=== PATIENT | male | born 1955 | race Caucasian/White ===

== ENCOUNTER 2017-06-13 12:00 | Emergency (ER) | payer MEDICAID ==
[2014-03-19 11:42] VITALS: BMI 37.7
--- NOTE | ~2017-06-13 | OP ---
PATIENT NAME: FCO GARNER MEDICAL RECORD: [id number] :59 LOCATION:[facility] ADMISSION DATE: SURGEON: FCO FARNSWORTH MD DATE OF OPERATION: 06/13/2017 PROCEDURES: 1. PTCA and stent, LAD. 2. Intravascular ultrasound of LAD. 3. Left heart catheterization. 4. Selective coronary angiography. 5. Left ventriculogram. INDICATIONS: Angina and coronary disease. PROCEDURE IN DETAIL: After informed consent was obtained and after detailed explanation of risks and benefits as well as alternative therapies, the patient was elected to proceed with angiogram and angioplasty. The right femoral area was prepped and draped in normal sterile fashion. The right femoral artery was cannulated via modified Seldinger technique with placement of 6-Armenian sheath. All catheters were exchanged through the sheath. FINDINGS: Left ventriculogram was performed in standard 30-degree OLIVEIRA view, reveals good cardiac wall motion throughout all segments. Overall ejection fraction is estimated at 60%. SELECTIVE CORONARY ANGIOGRAPHY: 1. Left main shows no significant angiographic disease. 2. Left anterior descending has 60% to 70% stenosis, confirmed by intravascular ultrasound, in the mid vessel. 3. Left circumflex has moderate irregularities, but no flow-limiting stenosis. 4. Right coronary has moderate irregularities, but no flow-limiting stenosis. PTCA AND STENT OF THE LAD: The stent used was 2.5 x 18-mm Integrity. Result was 0% residual stenosis. OVERALL IMPRESSION: Successful PTCA and stent of the LAD. TRANSINT:[id number] Voice Confirmation ID: [id number] DOCUMENT ID: [id number] FCO FARNSWORTH MD at 1153 CC: [id number] DICTATION DATE: 06/13/17 1638 TRIMMER OPERATOR THREE KNIFE: 06/13/17 1747 DEP ER 06/13/17 [place] [address]
--- NOTE | ~2017-06-13 | CN ---
PATIENT NAME:FCO TY MEDICAL RECORD: [id number] : 59 LOCATION:[facility] ADMIT DATE: ACCOUNT: [id number] CONSULTING PHYSICIAN: FCO FARNSWORTH MD REFERRING PHYSICIAN: JAVID ELLISON MD DATE OF CONSULTATION: 06/13/2017 DIAGNOSES: 1. Chest pain compatible with angina. 2. Hypertension. 3. Hyperlipidemia. HISTORY: Mr. Ty has no history of ischemic heart disease, began having chest pain approximately 2 weeks ago. It markedly worsened in an unstable escalating fashion. It is very typical for angina-like discomfort with a dull aching heaviness, pressure-like sensation across the anterior chest. REVIEW OF SYSTEMS: The patient reports easy bruising but reports no swollen glands. The patient reports no fever, no night sweats, no significant weight gain, no significant weight loss. No significant exercise tolerance. The patient reports no dry eyes, no irritation, no vision change. Patient reports no difficulty hearing and no ear pain. Patient reports no frequent nose bleeds or nose and sinus problems. Patient reports on arm pain on exertion. No shortness of breath while lying down. No history of heart murmur. Patient reports no cough, no wheezing or coughing up blood. Patient reports no abdominal pain, no vomiting. Normal appetite. No diarrhea and not vomiting blood. No nausea and no constipation. Patient reports no incontinence. No difficulty urinating. No hematuria. No increased frequency. Patient reports no muscle aches. No weakness, no arthralgias, no back pain. No swelling of the extremities. Patient reports no abnormal mole, no jaundice, no rashes. Reports no loss of consciousness. No weakness and no numbness. No seizures, dizziness, or headaches. The patient reports no depression, no sleep disturbance, feeling safe in a relationship and no alcohol abuse. Patient reports on fatigue. Reports no runny nose or sinus pressure. No itching, no hives, and no frequent sneezing. PHYSICAL EXAMINATION: GENERAL APPEARANCE: Well-nourished, well-developed, appears stated age. Level of distress, comfortable. PSYCHIATRIC: Mental status, alert, normal affect. Orientation, oriented to time, place and person. EYES: Lids and conjunctiva, noninjected. No discharge, no pallor. ENT: Lips, teeth, gums, normal dentition. Oropharynx, no cyanosis, no pallor. NECK: Carotid arteries, bilateral normal upstroke, no bruits, no thrills. JUGULAR VEINS: No jugular venous pressure or distention. CERVICAL LYMPH NODES: Nontender, nonenlarged. THYROID: Not enlarged. Nontender. No nodules. LUNGS: Respiratory effort, unlabored. CHEST: Normal curvature. No thoracic deformity. No chest wall tenderness. Percussion, resonant. Auscultation, clear. No wheezes, no rales, no rhonchi. CARDIOVASCULAR: Precordial exam, nondisplaced. No heaves or pericardial thrills. Rate and rhythm, regular. Heart sounds, normal S1, normal S2. No S3, no gallop, no rub. Systolic murmur, not heard. Diastolic murmur, not heard. EXTREMITIES: No cyanosis, no edema. Peripheral pulses, full and equal in all extremities, except as noted. No bruits appreciated. CONSULT REPORT [id number] FCO TY ABDOMEN: Soft, nondistended. Normal aorta. No bruit. Nontender. No masses. Liver, nontender, no hepatomegaly. Spleen, nontender, no splenomegaly. MUSCULOSKELETAL: No joint tenderness. No joint swelling. No erythema. NEUROLOGICAL: Normal gait, normal strength, normal tone. SKIN: Warm and dry. OVERALL IMPRESSION: Chest pain compatible with angina in escalating fashion, most likely has hemodynamically significant coronary artery disease. We will proceed with coronary angiography. Further care depends upon findings of the angiography. TRANSINT:[id number] Voice Confirmation ID: [id number] DOCUMENT ID: [id number] FCO FARNSWORTH MD at 1153 CC: [id number] DICTATION DATE: 06/13/17 1547 PARKING GARAGE MANAGER: 06/13/17 1602 DEP ER 06/13/17 [facility] [address] [place] [address]
--- NOTE | ~2017-06-13 | HEMODYNAMI ---
PATIENT:FCO GARNER MEDICAL RECORD: [id number] : 59 [id number] ADMISSION DATE: 06/13/17 Generatedon:06/13/201716:14 Patient name: FCO GARNER Patient #: [id number] SSN: : 1955 Date of study: 06/13/2017 Page: Of Hemodynamic Procedure Report Patient Data Patient Demographics Procedure consent was obtained First Name: FCO Gender: Male Last Name: PASCUAL : 1955 Patient #: [id number] Age: 62 year(s) Race: Unknown Additional ID: [id number] Contact details [address]: [address] [place] [address] cutoff State: [place] City: [place] Zip code: [address] Admission Admission Data Admission Date: 06/13/2017 Admission Time: 12:00 Procedure Procedure Types Cath Procedure Diagnostic Procedure Sedation Charges Moderate Sedation up to 15 minutes LHC LHC w/Coronaries FFR/IVUS Intra-Coronary IVUS Initial PCI Procedure Coronary Stent Coronary Stent Initial Procedure Description Procedure Date Procedure Date: 06/13/2017 Procedure Start Time: 15:52 Procedure End Time: 16:12 Procedure Staff Name Function Sandy De La Cruz RT Scrub Fco Calhoun MD Performing Physician Chuck Walters RN Nurse Cris Coker RT Monitor Procedure Data Cath Procedure Fluoroscopy Diagnostic fluoroscopy Total fluoroscopy Time: 5.5 time: 5.5 min min Diagnostic fluoroscopy Total fluoroscopy dose: 829 dose: 829 mGy mGy Contrast Material Contrast Material Type Amount (ml) Isovue 300 116 Entry Location Entry Primary Successful Side Size Upsize Upsize Entry Closure Veronica ccessful Closure Location (Fr) 1 (Fr) 2 (Fr) Remarks Device Remarks Radial Right 6 Fr Mechanical tr BAND artery Short Compression Estimated blood loss: 10 ml Diagnostic catheters Device Type Used For End Catheter Placement DIAGNOSTIC [place] 110cm 5 Procedure Fr catheter ([id number]) Procedure Complications No complications Procedure Medications Medication Administration Route Dosage 0.9% NaCl I.V. 100 ml/hr Oxygen NC 2 l/min Heparin Flush Bag added to field 2 bags (1000units/500ml NS) Lidocaine 2% added to field 20 Versed I.V. 2 mg Fentanyl I.V. 100 mcg Versed I.V. 1 mg Radial Cocktail added to field 1 syringe (Verapomil 2mg/Nitro 400mcg/Heparin 1500units) Radial Cocktail I.A. 1 syringe (Verapomil 2mg/Nitro 400mcg/Heparin 1500units) Heparin Bolus I.V. 4000 units Integrilin (Bolus I.V. 9.5 ml 2mg/ml) Integrilin (Bolus wasted 0.5 ml 2mg/ml) Versed I.V. 1 mg Hemodynamics Rest Heart Rate: 69 (bpm) Snapshots Pre Cath Intra NCS Post Cath Vital Signs Time Heart Resp SPO2 etCO2 NIBP (mmHg) Rhythm Pain Sedation Rate (ipm) (%) (mmHg) Status Level (bpm) 15:45:52 77 14 96 0 139/83(106) NSR 0 (11) 10(A) , No pain 15:50:31 74 16 92 0 135/74(101) NSR 0 (11) 10(A) , No pain 15:55:12 83 14 96 0 108/68(86) NSR 0 (11) 10(A) , No pain 15:59:44 70 14 95 0 111/60(101) NSR 0 (11) 10(A) , No pain 16:04:20 68 14 94 0 123/63(97) NSR 0 (11) 10(A) , No pain 16:09:01 72 13 95 0 116/53(95) NSR 0 (11) 10(A) , No pain Medications Time Medication Route Dose Verified Delivered Reason Note s Effectiveness by by 15:43:41 0.9% NaCl I.V. 100 Chuck Chuck Per physician ml/hr Romeo Walters RN RN 15:43:52 Oxygen NC 2 l/min Chuck Chuck Per physician Romeo Walters RN RN 15:44:07 Heparin Flush added 2 bags Chuck Chuck used for Bag to Romeo Walters procedure (1000units/500ml field WORLEY RN NS) 15:44:47 Lidocaine 2% added 20ml Chuck Chuck for local to vial Lorigan Lorigan anesthetic field WORLEY RN 15:46:49 Versed I.V. 2 mg Chuck Chuck for sedation Lorigan Lorigan RN RN 15:46:58 Fentanyl I.V. 100 mcg Chuck Chuck for sedation Romeo Walters RN RN 15:48:41 Versed I.V. 1 mg Chuck Chuck for sedation Romeo Walters RN RN 15:51:37 Radial Cocktail added 1 Chuck Chuck used for (Verapomil to syringe Romeo Walters procedure 2mg/Nitro field RN RN 400mcg/Hepari 15:53:59 Radial Cocktail I.A. 1 Chuck Fco for (Verapomil syringe Romeo Calhoun MD vasodilation 2mg/Nitro RN 400mcg/Hepari 16:06:36 Heparin Bolus I.V. 4000 Chuck Fco for units Romeo Calhoun MD anticoagulation RN 16:07:36 Integrilin I.V. 9.5 ml Chuck Fco for (Bolus 2mg/ml) Romeo Calhoun MD antiplatelet RN therapy 16:07:47 Integrilin wasted 0.5 ml Chuck Fco to sharp's (Bolus 2mg/ml) Romeo Calhoun MD RN 16:08:07 Versed I.V. 1 mg Chuck Fco for sedation Romeo Calhoun MD box truck owner operator Log Time Note 15:13:42 Sandy Counts RT(R) sent for patient. Start room use. 15:13:43 Time tracking: Regular hours 15:13:47 Plan of Care:Hemodynamics will remain stable., Cardiac rhythm will remain stable., Comfort level will be maintained., Respiratory function will remain adequate., Patient/ family verbilizes understanding of procedure., Procedure tolerated without complication., Recovers from procedure without complications.. 15:25:19 Patient received from ED to CCL 1 Alert and oriented. Tansferred to table in Supine position. 15:25:27 Warm blankets applied, and harinder hugger turned on for patient comfort. 15:25:29 Correct patient and procedure confirmed by team. 15:25:32 Signed procedure consent form obtained from patient. 15:25:42 H&P Date Dictated: 06/13/2017 Emergent; H&P N/A. 15:25:45 Pre-procedure instructions explained to patient. 15:25:49 Family in waiting room. 15:25:59 Patient NPO since Breakfast. 15:32:04 ECG and BP/O2 sat monitors applied to patient. 15:32:12 Full Disclosure recording started 15:32:25 IV Extension Set opened to sterile field. 15:42:18 Is the patient allergic to Iodine/contrast media? No. 15:42:20 Was the patient premedicated? Yes 15:42:21 Is patient on blood thinner?Yes 15:42:24 ACC The patient was administered the following blood thiners within the last 24 hours: ACCPlavix 15:42:41 Patient diabetic? Yes. 15:43:41 0.9% NaCl 100 ml/hr I.V. was administered by Chuck Walters RN; Per physician; 15:43:52 Oxygen 2 l/min NC was administered by Chuck Walters RN; Per physician; 15:44:07 Heparin Flush Bag (1000units/500ml NS) 2 bags added to field was administered by Chuck Walters RN; used for procedure; 15:44:47 Lidocaine 2% 20ml vial added to field was administered by Chuck Walters RN; for local anesthetic; 15:45:05 Vital chart was started 15:45:06 Baseline sample Acquired. 15:45:10 Rhythm: sinus rhythm 15:45:26 Snore? Yes 15:45:28 Sleep apnea? Yes 15:45:38 Airway obstruction? Yes EMPHAZEMA 15:45:44 Patient pain scale 0/10 ?. 15:45:54 IV patent on arrival in right hand with 0.9% NaCl at KVO. 15:46:16 IV started by Chuck Walters RN inleft forearm with a 22 gauge IV catheter with 0.9% NaCl at KVO. 15:46:21 Lab results completed and on chart. 15:46:25 Right Radial & Right Groin area was prepped with chlora-prep and draped in sterile fashion 15:46:26 Alarms reviewed by R. N. 15:46:27 Sharps counted by scrub and verified by R.N. 15:46:28 Physician paged 15:46:29 --------ALL STOP TIME OUT------ 15:46:29 Physician arrived 15:46:30 Final Timeout: patient, procedure, and site verified with staff and physician. All members of the team are in agreement. 15:46:33 Right Radial & Right Groin site verified by team. 15:46:41 Physical assessment completed. ASA score P 2 - A patient with mild systemic disease as per Fco Calhoun MD. 15:46:45 Sedation plan: IV Moderate Sedation Medication:Versed, Fentanyl 15:46:49 Versed 2 mg I.V. was administered by Chuck Walters RN; for sedation; 15:46:50 Use device set Radial Dx or PCI 15:46:51 ACIST Syringe (58714) opened to sterile field. 15:46:52 Bag Decanter (2002S) opened to sterile field. 15:46:52 Medline Cath Pack ([id number]) opened to sterile field. 15:46:53 SHEATH 6FR Slender ([id number]) opened to sterile field. 15:46:54 ACIST Hand Control (03159) opened to sterile field. 15:46:54 DIAGNOSTIC WIRE .035 260cm J wire (791206) opened to sterile field. 15:46:55 Tegaderm 4 x 4 (1626W) opened to sterile field. 15:46:55 ACIST Manifold (82733) opened to sterile field. 15:46:56 MBrace Wrist Support ([id number]) opened to sterile field. 15:46:57 NEEDLE Cook 21G 4cm Radial (G27071) opened to sterile field. 15:46:58 Fentanyl 100 mcg I.V. was administered by Chuck Walters RN; for sedation; 15:48:41 Versed 1 mg I.V. was administered by Chuck Walters RN; for sedation; 15:50:27 Zero performed for pressure channel P1 15:51:37 Radial Cocktail (Verapomil 2mg/Nitro 400mcg/Heparin 1500units) 1 syringe added to field was administered by Chuck Walters RN; used for procedure; 15:51:58 Procedure started. 15:52:30 Local anesthetic to right radial artery with Lidocaine 2% by Fco Calhoun MD.INITIAL ACCESS ONLY 15:53:59 Radial Cocktail (Verapomil 2mg/Nitro 400mcg/Heparin 1500units) 1 syringe I.A. was administered by Fco Calhoun MD; for vasodilation; 15:54:07 A 6 Fr Short sheath was inserted into the Right Radial artery 15:54:19 A DIAGNOSTIC [place] 110cm 5 Fr catheter (206451) was advanced over the wire and used for Procedure. 15:55:28 LV angiography performed. 15:55:50 EF : 60 % 15:56:01 RCA angiography performed. 15:56:39 LCA angiography performed. 15:59:02 Catheter removed. 16:00:13 CHOICE PT Extra Support 182cm wire ([id number]) opened to sterile field. 16:00:14 GUIDE 6FR XBLAD 3.5 catheter ([id number]) opened to sterile field. 16:00:15 INFLATOR Merit BasixCompak (JO5868) opened to sterile field. 16:00:18 [place] IVUS Catheter (24340Z) opened to sterile field. 16:05:08 Proceeding to intervention. 16:05:36 6 Fr xblad3.5 guide catheter was inserted over the wire 16:05:43 Wire advanced across lesion. 16:06:00 IVUS catheter advanced over wire. 16:06:06 IVUS catheter removed over wire. 16:06:36 Heparin Bolus 4000 units I.V. was administered by Fco Calhoun MD; for anticoagulation; 16:07:36 Integrilin (Bolus 2mg/ml) 9.5 ml I.V. was administered by Fco Calhoun MD; for antiplatelet therapy; 16:07:47 Integrilin (Bolus 2mg/ml) 0.5 ml wasted was administered by Fco Calhoun MD; to sharp's; 16:08:07 Versed 1 mg I.V. was administered by Fco Calhoun MD; for sedation; 16:08:30 Inflation number: 1 A INTEGRITY RX 2.5 x 18 stent ([id number]) was prepped and advanced across the Prox LAD, then inflated to 13 MALINDA for 0:10 (min:sec). 16:08:56 Wire removed. 16:08:58 Guide catheter removed. 16:09:20 Sheath removed intact; hemostasis achieved with Mechanical Compression to the Right Radial artery. 16:09:32 TR BAND Large ([id number]) opened to sterile field. 16:09:36 Procedure ended.(Physican Out) 16:09:52 Fluoroscopy time 05.50 minutes. 16::57 Fluoroscopy dose: 829 mGy 16::57 Flurop Dose total: 829 16:10:13 Contrast amount:Isovue 300 116ml. 16:10:22 Sharps counted by scrub and verified by R.N. 16:10:25 TR band inflated with 12cc of air. 16:10:27 Insertion/operative site no bleeding no hematoma. 16:10:30 Post Procedure Pulses reassessed and unchanged 16:10:38 Post-procedure physical assessment completed. ASA score P 2 - A patient with mild systemic disease as per Fco Calhoun MD. 16:10:44 Post procedure rhythm: unchanged. 16:10:50 Estimated blood loss: 10 ml 16:10:52 Post procedure instruction explained to patient.Patient verbalizes understanding. 16:11:14 Procedure type changed to Cath procedure, Diagnostic procedure, Sedation Charges, Moderate Sedation up to 15 minutes, LHC, LHC w/Coronaries, FFR/IVUS, Intra-Coronary IVUS Initial, PCI procedure, Coronary Stent, Coronary Stent Initial 16:11:27 Procedure and supply charges have been captured, reviewed, submitted and are correct. 16:12:01 Procedure Complication : No complications 16:12:04 Vital chart was stopped 16:12:06 See physician's report for complete and final results. 16:12:09 Report given to Pre/Post Procedure Room. 16:12:12 Patient transfered to Pre/Post Procedure Room with Stretcher. 16:12:15 Full Disclosure recording stopped 16:12:15 Procedure ended. 16:12:19 End room use (Document Last) 16:12:36 ACC-PCI Only Patient was given prescriptions, or instructed by Fco Calhoun MD to start/continue the following medications upon discharge: Plavix Intervention Summary Intervention Notes Time ActionType Lesion and Equipment Action# Pressure Duration Attributes Used 16:08:30 Inflate Prox LAD INTEGRITY RX 1 13 00:10 balloon 2.5 x 18 stent ([id number]) Device Usage Item Name Manufacture Quantity Catalog Number Hospital Part Current Mini mal Lot# / Charge Number Stock Stock Serial# Code IV Extension Hospira 1 95949-27 850540 34929 816298 5 Set ACIST Acist 1 80603 645428 197791 865364 20 Syringe Medical (09338) Systems Inc Medline Cath Cardinal 1 [id number] 401316 30183 649312 5 Pack Health ([id number]) Bag Decanter Microtek 1 003441 58490 736256 5 () Medical Inc. SHEATH 6FR Terumo 1 [id number] 455997 369907 483475 40 Slender ([id number]) DIAGNOSTIC St [place] 1 264811 043977 451819 790979 30 WIRE .035 260cm J wire (813789) ACIST Hand Acist 1 41055 984688 116140 874442 5 Control Medical (05505) Systems Inc ACIST Acist 1 78214 036361 102479 306053 5 Manifold Medical (35487) Systems Inc Tegaderm 4 x 3M 1 1626W 011905 524834 615219 5 4 (1626W) MBrace Wrist Advanced 1 140-0250-00 573076 38373 022069 5 Support Vascular (058539843) Dynamics NEEDLE Cook [place] [employer] 1 U16409 361079 150169 078483 5 21G 4cm Radial (U86003) DIAGNOSTIC Terumo 1 405013 753795 728434 744580 5 [place] 110cm 5 Fr catheter (423880) CHOICE PT [place] 1 [id number] 163627 106028 372785 5 Extra Scientific Support 182cm wire ([id number]) GUIDE 6FR Cardinal 1 [id number] 270164 540563 053961 10 XBLAD 3.5 Health catheter (36903436) INFLATOR Merit 1 RQ8176 729654 004098 209948 15 [facility] Medical BasixCompak (KB7665) [place] 1 24747J 826595 829156 620775 8 [place] IVUS Catheter (20786Z) INTEGRITY RX Medtronic 1 [id number] 333849 752161 165003 5 [id number] 2.5 x 18 stent ([id number]) TR BAND Terumo 1 [id number] 486102 567238 846800 40 Large ([id number]) Signature Audit Firestone Stage Time Signature Unsigned Intra-Procedure 06/13/2017 Cris Coker 4:14:07 PM RT(R) Signatures Monitor : Cris Coker Signature : RT Date : Time : [facility] [address] [place] [address]
[~2017-06-13 12:00] MED LIST: BAYER CHEWABLE81 MG PO; DEMEROL50 MG PO; PROTONIX40 MG PO; ZESTRIL40 MG PO
[2017-06-13 12:31] LABS: BASOPHILS 0.3 % (0-2); EOSINOPHILS 1.5 % (0-7); HEMATOCRIT 40.8 % (42.0-54.0); IMMATURE GRANULOCYTES 0.3 % (0-5); LYMPHOCYTES 29.3 % (15-50); MCH 30.8 pg (26.0-34.0); MCHC 34.3 g/dL (31.0-37.0); MCV 89.7 fL (80.0-100.0); MONOCYTES 9.6 % (2-11); RBC 4.55 10x6/uL (4.20-6.10); RDW 13.4 % (11.5-14.5); WBC 6.1 10x3/uL (4.8-10.8)
[2017-06-13 12:38] LABS: PLATELET COUNT 190 10x3/uL (130-400)
[2017-06-13 12:53] LABS: ALBUMIN 3.8 g/dL (3.4-5.0); ALKALINE PHOSPHATASE 92 U/L (46-116); ALT (SGPT) 27 U/L (10-68); BILIRUBIN - TOTAL 0.59 mg/dL (0.2-1.3); CALC OSMOLALITY 280 mosm/kg (275-300); CALCIUM 8.8 mg/dL (8.5-10.1); CARBON DIOXIDE 24.8 mmol/L (21.0-32.0); CHLORIDE - SERUM 104 mmol/L (98-107); CREATININE - SERUM 0.9 mg/dL (0.6-1.3); GLUCOSE 122 mg/dL (74-106); PROTEIN - SERUM 7.6 g/dL (6.4-8.2); SODIUM 139 mmol/L (136-145); UREA NITROGEN 18 mg/dL (7-18); eGFR NON AFRICAN AMERICAN > 90 mL/min (90-120)
[2017-06-13 13:04] LABS: CKMB 1.7 U/L (0.0-3.6); CREATINE KINASE 230 UL (21-232)
[2017-06-13 13:08] LABS: TROPONIN-I < 0.017 ng/mL (0.000-0.060)
[2017-06-13 13:59] LABS: CHOL - HDL RATIO 3.4 ratio (2.3-4.9); LDL-HDL RATIO 1.7 ratio (1.5-3.5)
[2017-06-13] MEDS ORDERED: PLAVIX75 MG PO (16:49)
== END 2017-06-13 19:54 | disposition home or self-care (01) ==
LOC: D.ER 12:00
PROVIDERS: Emergency Medicine
DX: I25.119 Atherosclerotic heart disease of native coronary artery with unspecified angina pectoris (principal); I10 Essential (primary) hypertension; E78.5 Hyperlipidemia, unspecified; Z01.812 Encounter for preprocedural laboratory examination

== ENCOUNTER → 2017-09-18 10:59 | Outpatient (CLI) | payer OTHER ==
[2014-03-19 11:42] VITALS: BMI 37.7
--- NOTE | ~2017-09-18 | EC ---
PATIENT:FCO GARNER DATE OF SERVICE: 09/18/17 SEX: M MEDICAL RECORD: [id number] DATE OF : 59 LOCATION:[facility] AGE OF PATIENT: 62 ADMISSION DATE: 09/18/17 REFERRING PHYSICIAN: INTERPRETING PHYSICIAN: FCO FARNSWORTH MD ECHOCARDIOGRAM REPORT ECHO CHARGES Date: CLINICAL DIAGNOSIS: ECHOCARDIOGRAPHIC MEASUREMENTS (adult normal given) AC root (d.<3.7cm) cm LV Septum d (<1.2 cm> cm Valve Excursion cm LV Septum (systole) cm Left Atria (s.<4.0cm> cm LVPW d(<1.2cm) cm RV (d.<2.3cm) cm LVPW (sytole) cm LV diastole(<5.6CM) cm MV E-F(>70mm/sec) cm LV systole cm LVOT Diameter cm MV exc.(>10mm) cm Est.ejection fraction (50-75%) % DOPPLER: LVIT cm/sec A cm/sec E cm/sec LA cm/sec RVSP mmHg LVOT cm/sec AOP1/2T m/s Asc. Ao cm/sec RVOT cm/sec RA cm/sec PA cm/sec AV Gradient Peak mmHg AV Mean mmHg AV Area cm MV Gradient Peak mmHg MV Mean mmHg MV Area cm COMMENTS: Gaming Department Head: Dynamite Shooter: HEATHER# Pericardial Effusion DATE OF SERVICE: 09/18/2017 PROCEDURE: Echo. FINDINGS: 1. Left ventricular chamber size is within normal limits. Left ventricular systolic function is normal. Overall ejection fraction estimated at 60%. 2. Left atrium is within normal limits at 3.8 cm. Right atrium and right ventricle chamber sizes are mildly dilated. 3. Valvular structures: Aortic valve demonstrates mild calcific aortic ECHOCARDIOGRAM REPORT [id number] PASCUALFCO stenosis, valve area calculates 1.4 cm-squared and there is a gradient of 22 mm across the valve. The remaining valvular structures have normal structure and motion. 4. Doppler interrogation elsewise reveals only trace tricuspid regurgitation, no other valvular insufficiency or stenosis. Pulmonary systolic pressure is estimated at 24 mmHg. 5. No evidence of pericardial effusion or left ventricular thrombus. TRANSINT:[id number] Voice Confirmation ID: [id number] DOCUMENT ID: [id number] FCO FARNSWORTH MD at 1705 CC: [id number] DICTATION DATE: 09/18/17 1207 ROOFING APPLICATOR: 09/18/17 1403 DEP CLI 09/18/17 [facility] [address] [id number]
[~2017-09-18 10:59] MED LIST changes: +PLAVIX75 MG PO
== END | disposition home or self-care (01) ==
LOC: D.ECHO 10:59
DX: I25.9 Chronic ischemic heart disease, unspecified (principal)

== ENCOUNTER 2019-03-14 15:26 | Emergency (ER) | payer OTHER ==
[~2019-03-14] VITALS: Ht 167.6 cm; Wt 116.4 kg
[2019-03-14 15:26] VITALS: Ht 167.6 cm; Wt 116.4 kg
[2019-03-14] MEDS ORDERED: ZETIA10 MG (15:32)
[2019-03-14] MEDS ORDERED: ISOSORBIDE MONO30 M1 PO (15:33)
[2019-03-14] MEDS ORDERED: TOPROL XL25 MG (15:34)
[2019-03-14 16:01] LABS: BASOPHILS 0.5 % (0-2); EOSINOPHILS 3.7 % (0-7); HEMATOCRIT 38.9 % (42.0-54.0); HEMOGLOBIN 13.4 g/dL (13.5-17.5); IMMATURE GRANULOCYTES 0.2 % (0-5); LYMPHOCYTES 25.9 % (15-50); MCHC 34.4 g/dL (31.0-37.0); MEAN PLATELET VOLUME 10.7 fL (7.4-10.4); MONOCYTES 6.5 % (2-11); NEUTROPHILS 63.2 % (40-80); PLATELET COUNT 193 10x3/uL (130-400); RBC 4.32 10x6/uL (4.20-6.10); RDW 12.9 % (11.5-14.5); WBC 5.7 10x3/uL (4.8-10.8)
[2019-03-14 16:21] LABS: CALC OSMOLALITY 282 mosm/kg (275-300); CALCIUM 8.2 mg/dL (8.5-10.1); CARBON DIOXIDE 27.5 mmol/L (21.0-32.0); CHLORIDE - SERUM 103 mmol/L (98-107); CREATININE - SERUM 0.9 mg/dL (0.6-1.3); GLUCOSE 210 mg/dL (74-106); POTASSIUM - SERUM 3.7 mmol/L (3.5-5.1); SODIUM 138 mmol/L (136-145); UREA NITROGEN 16 mg/dL (7-18); eGFR NON AFRICAN AMERICAN > 90 mL/min (90-120)
[2019-03-14 16:24] LABS: APTT 26.8 SECONDS (22.8-39.4); INR 0.95 (0.85-1.17); PROTIME 12.2 SECONDS (11.6-15.0)
[2019-03-14 16:53] LABS: ALBUMIN 3.4 g/dL (3.4-5.0); ALKALINE PHOSPHATASE 104 U/L (46-116); ALT (SGPT) 32 U/L (10-68); BILIRUBIN - TOTAL 0.37 mg/dL (0.2-1.3); CREATINE KINASE 277 UL (21-232); MAGNESIUM - SERUM 1.8 mg/dL (1.8-2.4); PROTEIN - SERUM 6.7 g/dL (6.4-8.2); TROPONIN-I < 0.017 ng/mL (0.000-0.060)
[2019-03-14 23:00] VITALS: BP 138/68
== END 2019-03-14 23:00 | disposition short-term general hospital (02) ==
LOC: D.ER 15:26
PROVIDERS: Emergency Medicine
DX: R07.2 Precordial pain (principal); R07.9 Chest pain, unspecified; I25.2 Old myocardial infarction; I10 Essential (primary) hypertension; D64.9 Anemia, unspecified; I25.10 Atherosclerotic heart disease of native coronary artery without angina pectoris; R73.9 Hyperglycemia, unspecified; R74.8 Abnormal levels of other serum enzymes